=== PATIENT | male | born 1950 | race Two or more races ===

== ENCOUNTER → 2023-12-25 09:37 | Outpatient (REF) | payer OTHER, MEDICARE, SELFPAY ==
[2023-12-25 10:20] LABS: % Basophils 0.6 % (0-2); % Immature Granulocytes 0.2 % (0-0.5); % Lymphocytes 32.5 % (20.5-51.1); % Monocytes 8.7 % (1.7-9.3); Absolute Eosinophils 0.1 10^3/uL (0-0.7); Absolute Lymphocytes 1.8 10^3/uL (1.2-3.4); Absolute Monocytes 0.5 10^3/uL (0.1-0.6); Hematocrit 36.5 % (39.0-52.0); Hemoglobin 12.4 g/dL (13.0-18.0); Mean Corpuscular Hgb 31.5 pg (27.0-31.0); Mean Corpuscular Volume 92.6 fL (80.0-94.0); Mean Platelet Volume 9.4 fL (7.4-10.4); Nucleated Red Blood Cells % 0 % (-); Platelet Count 247 10^3/uL (130-400); Red Blood Cell Count 3.94 10^6/uL (4.70-6.10); Red Cell Dist. Width 12.7 % (11.5-14.5); White Blood Cell Count 5.4 10^3/uL (4.8-10.8)
[2023-12-25 10:27] LABS: INR 2.09; PT 23.3 Sec (11.4-14.6)
[2023-12-25 11:31] LABS: ALT (SGPT) 15 U/L (0-50); AST (SGOT) 26 U/L (17-59); Albumin 4.9 g/dl (3.5-5.0); Alkaline Phosphatase 66 U/L (38-126); Blood Urea Nitrogen 22 mg/dl (9-20); Calcium 9.9 mg/dl (8.4-10.2); Carbon Dioxide 26 mmol/L (22-30); Chloride 98 mmol/L (98-107); Glucose 98 mg/dl (70-99); Magnesium 2.1 mg/dl (1.6-2.3); Potassium 4.3 mmol/L (3.5-5.1); Sodium 136 mmol/L (135-145); Total Bilirubin 0.6 mg/dl (0.2-1.3); Total Protein 8.1 g/dl (6.3-8.2); eGFR 53.74
[2023-12-25 11:55] LABS: NT-proBNP 1260 pg/ml; Troponin I < 0.012 ng/ml
== END ==
LOC: SDSPAT 09:37
PROVIDERS: ATTENDING PHYSICIAN Internal Medicine Cardiovascular Disease; OTHER PHYSICIAN Internal Medicine Cardiovascular Disease; OTHER PHYSICIAN Physician Assistant Medical
DX: Z01.818 Encounter for other preprocedural examination (principal); I42.9 Cardiomyopathy, unspecified; I48.21 Permanent atrial fibrillation; I50.32 Chronic diastolic (congestive) heart failure; I20.9 Angina pectoris, unspecified
CPT/HCPCS: 36415; 80053; 83735; 83880; 84484; 85025; 85610; 93005

== ENCOUNTER 2024-01-04 06:08 | Day surgery (SDC) | payer OTHER, SELFPAY ==
[2023-12-25 09:55] VITALS: BMI 38.7
[2024-01-04] VITALS (8 sets, daily range): BP systolic 80–112; BP diastolic 61–72; BMI 38.8
[2024-01-04 07:13] LABS: Glucose - Point of Care 93 mg/dl (70-99)
[2024-01-04 07:46] LABS: INR 2.22; PT 24.5 Sec (11.4-14.6)
--- NOTE | 2024-01-04 08:54 | W.ICD.CONTRA ---
Post ICD/PROTOTYPER-D
-
History of [place]?: Yes
LV Function
Left ventricular function study result?: Ejection Fraction >/= 40%
ACEI/ARB/ARNI
Patient already on ACEI/ARB/ARNI: Yes
Beta-Nicholas
Patient already on Beta Nicholas: Yes
--- NOTE | 2024-01-04 09:47 | ITS.CL.ICD ---
Job Training Supervisor - ICD
Implantable Cardioverter Defibrillator
Procedure Report:
Primary Window Clerk: Ronny Hopkins MD
Procedure Date: 01/04/2024
Name of procedure:
1. Device Revision: Dual Chamber ICD
2. Pulse Generator Change
3. Defibrillator Pocket Revision
History:
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
recovered EF who presents as referral for device MIKEY/SUPERVISOR LEAF SPRING FABRICATION for elective generator change.
Methods:
After informed consent was obtained, the patient was brought to the EP laboratory in a postabsorptive, nonsedated state. Peripheral IV access was established. Prophylactic antibiotics were administered prior to incision. Continues ECG, blood
pressure, and pulse oximetry were initiated. Cardioversion patch electrodes were placed on the patient's chest and back. A grounding patch was applied to the skin. A 'time out' was called and confirmed. Sedation was administered by the Anesthesia
service.
The left chest was prepared and draped in a sterile fashion. Local anesthesia was injected in the subcutaneous tissue in the infraclavicular area. An incision was made into the chronic scar. With cautious attention to the leads, the subcutaneous
tissue was dissected the level of the device capsule. The capsule was opened, the device was explanted and disconnected from the leads. The leads were inspected and found to be free of visible defect. The leads were tested and found to have
adequate pacing and sensing parameters, consistent with pre-procedure measurements.
The pocket was revised to accommodate the new device. The pocket was flushed with antibiotic solution and hemostasis was assured. The generator was connected to the leads and placed inside the pocket. Antibiotic envelope was used. The wound was
closed with 3 running layers of absorbable suture and Steri-strips were applied to the skin. Dressing was applied in the typical fashion.
Following the procedure, the patient was taken to the recovery area in stable condition. No complications were noted.
Lead parameters and device programming:
- RA Lead ([employer], Model: 4076, Serial# [id number]): Sensing 1.0 mV, Pacing threshold AF, Imp 383 Ohm
- RV Lead ([employer], Model: 0293, Serial# [id number]): Sensing 16.9 mV, Pacing threshold 0.9 V at 0.4 ms, Imp 473 ohm; Shock Impedance: 60 ohm
- Device: [employer] DC ICD (Model: D233, Serial# [id number]), programmed VVI lower rate 60 PPM
- Zones: Return to preprocedural settings: VT 1 1 60-200, ATP, shocks, VT zone 200-2 50, ATP, shocks, VF zone greater than 250 quick convert with shocks
Explanted device: [employer] model: E162, Serial# [id number]
Conclusions:
1. Successful dual chamber defibrillator revision
2. Pulse generator change, DC ICD
3. Normal function of ICD and lead at implant testing.
Recommendations:
1. Discharge home when stable
2. Follow-up will be arranged in our office 7-10 days post-discharge for wound check; follow up with servicer travel trailers as scheduled.
Nimesh Roy, DO
Copy to: Ronny Hopkins MD; Gissell Matias, DO
== END 2024-01-04 11:00 | disposition home or self-care (01) ==
LOC: CATH 06:08
PROVIDERS: ATTENDING PHYSICIAN Internal Medicine Cardiovascular Disease; FAMILY PHYSICIAN Family Medicine; OTHER PHYSICIAN Internal Medicine Cardiovascular Disease
PROC: 0JPT0PZ Removal of Cardiac Rhythm Related Device from Trunk Subcutaneous Tissue and Fascia, Open Approach (ICD-10-PCS; 2024-01-04)
PROC: 0JH608Z Insertion of Defibrillator Generator into Chest Subcutaneous Tissue and Fascia, Open Approach (ICD-10-PCS; 2024-01-04)
PROC: 3E0132A Introduction of Anti-Infective Envelope into Subcutaneous Tissue, Percutaneous Approach (ICD-10-PCS; 2024-01-04)
DX: Z45.02 Encounter for adjustment and management of automatic implantable cardiac defibrillator (principal); I42.9 Cardiomyopathy, unspecified; E66.01 Morbid (severe) obesity due to excess calories; I48.21 Permanent atrial fibrillation; Z86.73 Personal history of transient ischemic attack (TIA), and cerebral infarction without residual deficits; G47.33 Obstructive sleep apnea (adult) (pediatric); E78.5 Hyperlipidemia, unspecified; I11.0 Hypertensive heart disease with heart failure; I50.32 Chronic diastolic (congestive) heart failure; I25.2 Old myocardial infarction; R73.03 Prediabetes; N40.0 Benign prostatic hyperplasia without lower urinary tract symptoms; K21.9 Gastro-esophageal reflux disease without esophagitis; Z79.01 Long term (current) use of anticoagulants
CPT/HCPCS: 33263; 82962; 85610; C1721

== ENCOUNTER → 2024-12-15 14:34 | Outpatient (REF) | payer OTHER, MEDICARE, SELFPAY ==
[2024-12-15 15:59] LABS: % Basophils 0.4 % (0-2); % Immature Granulocytes 0.4 % (0-0.5); % Lymphocytes 23.5 % (20.5-51.1); % Monocytes 6.7 % (1.7-9.3); Absolute Lymphocytes 1.6 10^3/uL (1.2-3.4); Absolute Monocytes 0.5 10^3/uL (0.1-0.6); Absolute Neutrophils 4.7 10^3/uL (1.4-6.5); Hematocrit 33.9 % (39.0-52.0); Hemoglobin 11.3 g/dL (13.0-18.0); Mean Corp Hgb Conc. 33.3 g/dL (33.0-37.0); Mean Corpuscular Hgb 30.6 pg (27.0-31.0); Mean Corpuscular Volume 91.9 fL (80.0-94.0); Mean Platelet Volume 9.9 fL (7.4-10.4); Nucleated Red Blood Cells % 0 % (-); Platelet Count 262 10^3/uL (130-400); Red Blood Cell Count 3.69 10^6/uL (4.70-6.10); Red Cell Dist. Width 13.6 % (11.5-14.5); White Blood Cell Count 6.9 10^3/uL (4.8-10.8)
[2024-12-15 16:20] LABS: ALT (SGPT) 30 U/L (0-50); AST (SGOT) 30 U/L (17-59); Albumin 4.5 g/dl (3.5-5.0); Alkaline Phosphatase 84 U/L (38-126); Blood Urea Nitrogen 23 mg/dl (9-20); Calcium 9.1 mg/dl (8.4-10.2); Carbon Dioxide 22 mmol/L (22-30); Chloride 107 mmol/L (98-107); Glucose 99 mg/dl (70-99); Potassium 4.2 mmol/L (3.5-5.1); Sodium 138 mmol/L (135-145); Total Bilirubin 0.7 mg/dl (0.2-1.3); Total Protein 7.4 g/dl (6.3-8.2); eGFR > 60.00
[2024-12-15 17:05] LABS: INR 2.75; PT 29.1 Sec (11.4-14.6)
== END ==
LOC: REG 14:34
PROVIDERS: ATTENDING PHYSICIAN Internal Medicine Cardiovascular Disease; FAMILY PHYSICIAN Family Medicine; REFERRING PHYSICIAN Internal Medicine Cardiovascular Disease
DX: I25.10 Atherosclerotic heart disease of native coronary artery without angina pectoris (principal); I42.9 Cardiomyopathy, unspecified; I50.22 Chronic systolic (congestive) heart failure; E78.5 Hyperlipidemia, unspecified
CPT/HCPCS: 36415; 80053; 85025; 85610

== ENCOUNTER 2025-01-06 10:56 | Day surgery (SDC) | payer OTHER, SELFPAY ==
[2025-01-06] VITALS (7 sets, daily range): BP systolic 103–132; BP diastolic 67–97; BMI 39.2
[2025-01-06 12:08] LABS: INR 1.74; PT 20.5 Sec (11.4-14.6)
--- NOTE | 2025-01-06 13:00 | W.ICD.CONTRA ---
Post ICD/PASSENGER SERVICE SUPERVISOR-D
-
History of [place]?: No
LV Function
Left ventricular function study result?: Ejection Fraction </= 35%
ACEI/ARB/ARNI
Patient already on ACEI/ARB/ARNI: Yes
Beta-Nicholas
Patient already on Beta Nicholas: Yes
--- NOTE | 2025-01-06 15:30 | W.PN.UPDATE ---
Update Note
Progress Note Update
Primary Zoning Administrator: Ronny Hopkins MD
Procedure Date: 01/06/2025
Name of procedure:
1. Subclavian venography
History:
1. Patient is a very pleasant 74-year-old male with a past medical history significant for LV noncompaction, hyperlipidemia, permanent atrial fibrillation, chronic heart failure with reduced ejection fraction, hypertension, history of TIA who
presented for possible device upgrade from dual-chamber ICD to PACKAGE MAKER-D. Patient has NYHA II-III heart failure symptoms, LVEF less than or equal to 35% despite goal-directed medical therapy greater than 90 days, LBB/IVCD with QRS duration greater than
150 ms with increasing pacing percentage (greater than 30%).
2. Please refer to H&P for complete history.
Methods:
After informed consent was obtained, the patient was brought to the EP laboratory in a postabsorptive, nonsedated state. Peripheral IV access was established. Prophylactic antibiotics were administered prior to incision. Continuous ECG, blood
pressure, and pulse oximetry were initiated. Cardioversion patch electrodes were placed on the patient's chest and back. A grounding patch was applied to the skin. Sedation was administered by anesthesia services.
In order to define the extrathoracic portion of the subclavian vein and exclude significant venous obstruction or anomalous anatomy, subclavian venography was performed prior to the procedure. Using the patient's left peripheral IV, contrast was
injected and images were recorded. There was evidence of stenosis proximally near the insertion point of the 2 wires into the subclavian with reconstitution/collateralization just distal to this occlusion followed by a more central (proximal)
occlusion at the innominate/SVC junction with no flow demonstrating into the SVC/RA. Due to concern of occlusion, procedure was concluded. I reviewed the films with my colleague Dr. Jenna Moncada who agrees with occlusions. Patient have follow-up
with Dr. Moncada in office to discuss possibility of lead extraction versus surgical epicardial lead placement.
Recommendations:
- OK to resume home medications as indicated
- Follow-up with Dr Moncada as scheduled
Nimesh Roy DO, [facility], [facility]
Clinical Cardiac Beauty Counselor
cc: Gissell Matias DO; Ronny Hopkins MD; Jenna Moncada MD
== END 2025-01-06 17:30 | disposition home or self-care (01) | DRG 309 ==
LOC: CATH 10:56
PROVIDERS: ATTENDING PHYSICIAN Internal Medicine Cardiovascular Disease; FAMILY PHYSICIAN Family Medicine
DX: I82.701 Chronic embolism and thrombosis of unspecified veins of right upper extremity (principal); Z53.09 Procedure and treatment not carried out because of other contraindication; I50.22 Chronic systolic (congestive) heart failure; I48.21 Permanent atrial fibrillation; I82.890 Acute embolism and thrombosis of other specified veins; I82.290 Acute embolism and thrombosis of other thoracic veins; I11.0 Hypertensive heart disease with heart failure; E78.5 Hyperlipidemia, unspecified; Z86.73 Personal history of transient ischemic attack (TIA), and cerebral infarction without residual deficits
CPT/HCPCS: 36005; 75820; 85610; Q9967

== ENCOUNTER → 2025-01-14 14:44 | Outpatient (REF) | payer OTHER, MEDICARE, SELFPAY | LOC: RAD 14:44 | PROVIDERS: ATTENDING PHYSICIAN Thoracic Surgery (Cardiothoracic Vascular Surgery); FAMILY PHYSICIAN Family Medicine | DX: Z01.810 Encounter for preprocedural cardiovascular examination (principal) | CPT/HCPCS: 71260; Q9967 ==

== ENCOUNTER 2025-02-03 07:34 | Inpatient (IN) | payer OTHER, SELFPAY ==
[2025-01-16 09:28] VITALS: BMI 39.6
[2025-01-16 10:34] LABS: % Basophils 0.6 % (0-2); % Immature Granulocytes 0.2 % (0-0.5); % Monocytes 10.1 % (1.7-9.3); % Neutrophils 55.1 % (42.2-75.2); Absolute Lymphocytes 1.8 10^3/uL (1.2-3.4); Absolute Monocytes 0.5 10^3/uL (0.1-0.6); Absolute Neutrophils 2.9 10^3/uL (1.4-6.5); Hematocrit 36.4 % (39.0-52.0); Hemoglobin 11.9 g/dL (13.0-18.0); Mean Corp Hgb Conc. 32.7 g/dL (33.0-37.0); Mean Corpuscular Hgb 30.6 pg (27.0-31.0); Mean Corpuscular Volume 93.6 fL (80.0-94.0); Mean Platelet Volume 9.8 fL (7.4-10.4); Nucleated Red Blood Cells % 0 % (-); Platelet Count 230 10^3/uL (130-400); Red Blood Cell Count 3.89 10^6/uL (4.70-6.10); Red Cell Dist. Width 13.2 % (11.5-14.5); White Blood Cell Count 5.2 10^3/uL (4.8-10.8)
[2025-01-16 10:35] LABS: Urine Albumin 2+ (Neg - Trace); Urine Bilirubin Negative (Negative); Urine Character Clear (Clear); Urine Color Yellow; Urine Glucose 4+ (Negative); Urine Ketone Negative (Negative); Urine Leukocyte Negative (Negative); Urine Nitrite Negative (Negative); Urine Occult Blood 3+ (Negative); Urine Urobilinogen Negative (Neg - 1+)
[2025-01-16 10:46] LABS: INR 2.22; PT 24.7 Sec (11.4-14.6)
[2025-01-16 10:47] LABS: APTT 32.2 Sec (23.4-35.0)
--- NOTE | 2025-01-16 10:49 | CM ---
CM following for DC planning needs.
Met w/ patient and spouse during PATs for planned procedure, 01/20.
Pt. resides w/ spouse in a private, [facility]. He is functionally indep. w/ ADLs, mobility without the use of any assisted device.
Pt. uses a CPAP @ home.
Pt. has RX plan and uses [facility] [address].
Reviewed pre and post op routines.
Soap provided.
Reviewed post op MD appointments.
Plan is for home once medically stable.
No antic. needs identified.
[2025-01-16 11:34] LABS: ALT (SGPT) 18 U/L (0-50); AST (SGOT) 25 U/L (17-59); Albumin 4.7 g/dl (3.5-5.0); Alkaline Phosphatase 62 U/L (38-126); Blood Urea Nitrogen 22 mg/dl (9-20); Calcium 9.2 mg/dl (8.4-10.2); Carbon Dioxide 26 mmol/L (22-30); Chloride 103 mmol/L (98-107); Direct Bilirubin 0.3 mg/dl (0.0-0.4); Estimated Creatinine Clearance 68 ml/min; Glucose 113 mg/dl (70-99); Potassium 4.6 mmol/L (3.5-5.1); Sodium 140 mmol/L (135-145); Total Bilirubin 0.8 mg/dl (0.2-1.3); Total Protein 7.7 g/dl (6.3-8.2); eGFR > 60.00
[2025-01-16 11:54] LABS: Urine Hyaline Cast 0-2 /LPF (0-2)
[2025-01-16 11:56] LABS: Glycohemoglobin (HgbA1c) 5.8 % (4.0-5.6)
[2025-01-16 11:58] LABS: Urine Red Blood Cell 0-2 /HPF (0-2); Urine White Cell 0-2 /HPF (0-5)
[2025-02-03] VITALS (8 sets, daily range): BP systolic 96–143; BP diastolic 63–100; BMI 38.8
--- NOTE | 2025-02-03 08:00 | PTCARENOTE ---
Pt received into 2264 at 0715; pt AAOx3; pt confirmed 2 showers at home and NPO since 02/02/2025 at 2200; Medication list confirmed with pt; ABO collected and sent to lab; pt clipped and prepped for [facility]; all questions answered.
[2025-02-03] MEDS: BACTROBAN 2% OINTMENT 1 APPLIC NASAL (08:09)
--- NOTE | 2025-02-03 09:01 | CM ---
Reviewed chart. Mr. Orellana is in the operating room today. Prior to admission he resides with his spouse in a two story home. Prior to admission he was independent with ambulation and adls. He has a CPAP Machine at home. He has a prescription
plan and uses [facility]. Medical work-up in progress. The discharge plan is to return home with his spouse when medically stable.
--- NOTE | 2025-02-03 13:33 | W.CVOR.SURPR ---
CVOR Surgeon Immed Pre Op
-
I have examined this patient prior to performance of the scheduled procedure.
The patient's condition is unchanged from the time of the dictated/written History and
Physical and the patient is able to undergo the scheduled procedure.
LV epicardial Lead and upgrade to AS400 ANALYST/ICD and BIJAN E
--- NOTE | 2025-02-03 14:20 | PTCARENOTE ---
Received patient from morning RN. Patient was supposed to have procedure done today (planned LV epicardial Lead and upgrade to AIRPORT OPERATIONS OFFICER/ICD and BIJAN E), however due to OR schedule conflict/acuity of unit patient's procedure delayed until tomorrow. Patient
aware of plan. Assessment completed and documented under shift assessment on worklist.
Patient is pleasant, cooperative and AAOX4. OOB without assist. A-Fib with occasional PVC's, occasional V-paced. R Wrist #22 patent. No edema + pulses. RA, lungs clear. Obese abdomen, + BS. Voids in bathroom. Skin intact outside of bruises to knees
which patient reports is from praying at home. Patient to be NPO at midnight.
Does normally take Warfarin for A-Fib. However, okay for no anticoagulation at this time per Cardiac CORPORATION SECRETARY.
[2025-02-03] MEDS: TOPROL XL 50 MG PO (14:21)
--- NOTE | 2025-02-03 20:00 | PTCARENOTE ---
received pt from previous rn. AAOX4. OOB without assist. A-Fib with occasional PVC's, occasional V-paced. R Wrist #22 patent. No edema + pulses. RA, lungs clear. Obese abdomen, + BS. Voids in bathroom. Skin intact outside of bruises to knees which
patient reports is from praying at home. call hassan within reach.
--- NOTE | 2025-02-04 00:24 | PTCARENOTE ---
VSS, a-fib per tele monitor w/ occasional V pacing. assessment remains unchanged.
[2025-02-04 05:44] VITALS: BP 110/64
[2025-02-04 05:52] VITALS: BMI 38.7
--- NOTE | 2025-02-04 07:10 | PTCARENOTE ---
pt NPO since midnight, CHG bath given, VSS, sent to CVOR.
[2025-02-04 07:30] LABS: Urine Albumin 2+ (Neg - Trace); Urine Bilirubin Negative (Negative); Urine Character Clear (Clear); Urine Glucose Negative (Negative); Urine Ketone Negative (Negative); Urine Leukocyte Negative (Negative); Urine Nitrite Negative (Negative); Urine Occult Blood 4+ (Negative); Urine Urobilinogen 1+ (Neg - 1+)
[2025-02-04 07:31] LABS: Urine Color Amber
[2025-02-04 07:42] LABS: Urine Squamous Cell 0-2 /LPF (Few); Urine White Cell 0-2 /HPF (0-5)
--- NOTE | 2025-02-04 09:27 | W.PN.CT.SURG ---
CT Surgery Operative Note
-
CARDIAC SURGERY OPERATIVE REPORT
Preoperative Diagnosis: Nonischemic cardiomyopathy with reduced EF despite goal-directed medical therapy
Postoperative Diagnosis: Same
Procedure(s) Performed:
1. Left Anterolateral Minithoracotomy
2. Implant of 2 left ventricular epicardial leads
3. Upgrade device to WATER CONSERVATIONIST ICD
4. Cryo nerve ablation of intercostal spaces 3, 4, and 5
5. Threshold testing of new devices
Date of Surgery: 02/04/25
Comorbidities:
1. Nonischemic cardiomyopathy with LVEF of 25%
2. History of H fibrillation with PPM placement
3. Hyperlipidemia
4. Hypertension
5. Obstructive sleep apnea
6. History of TIA
7. GERD
8. Morbidly obese with a BMI of 38
Attending Surgeon: Kevin Laurent MD, MS
Assistants: Kevin Hassan PA-C (present and necessary to engineer first assistant, retraction, suction, exposure, suture management, and wound closure under my direction)
Anesthesiology: Marino Aguilera MD and AMBROCIO Malloy
Scrub and Circulating RNs: Darlene Lowry, BLAIRE, Linda Chappell RN
Anesthesia: GETA, Dual Lumen
EBL: 20cc
Products: None
Implants:
1. [employer] medical LV epicardial lead screw on, serial #[id number] (backup)
2. [employer] medical LV epicardial lead screw line, serial #[id number] (in use)
3. Medtronic WATER CONSERVATIONIST ICD cobalt XT HF MRI SureScan, serial number [id number]
Indication(s) for Procedures: This is a 74-year-old male with a history of nonischemic cardiomyopathy status post DC ICD for primary prevention with history of TIA and A-fib. He was referred to me given that he has newly found venous stenosis as
well as a drop in his left ventricular ejection fraction to 25% despite goal-directed medical therapy. His EKG demonstrated left bundle branch block. The patient also requested to have a new device placed with epicardial leads as opposed to laser
lead extraction attempt.
Findings: A small anterolateral minithoracotomy was created at the fourth intercostal space the pericardium was opened and the stay sutures were placed. Of note his chest wall was extremely thick and with his cardiomegaly, his LV was essentially
pushed up against the chest wall. 2 left ventricular leads were placed both had excellent impedance and capture these were tunneled up towards the existing pacemaker which was explanted and upgraded to a WATER CONSERVATIONIST ICD. He was stable throughout the
process. The primary epicardial lead had a voltage of 0.[address] wave of 5.3. The backup left ventricular epicardial pacer lead had a voltage of 1.0, impedance of 646, and P R wave of 6.3. His existing right atrial right
ventricular leads remained the same. Of note he was underlying atrial fibrillation and so we could not test the pacing threshold of his right atrial lead. His settings was set to 80 bpm in order to override his [place] A-fib rhythm. His final
pacing mode was VVIR rate of 80 with upper tracking rate of 130 bpm and upper activity rate of 120.
Description of Procedure: Description of Procedure: The patient was taken to the operating room. Their identity and procedure to be performed were verified and they were positioned supine with left side bumped on the operating table. Induction via
general anesthesia with endotracheal intubation was performed and arterial monitoring were inserted. The patient was then prepped and draped from chin to thighs in a sterile fashion. A preoperative time-out was performed with all members of the team
present. For intercostal space was identified and a 7-9 cm incision was made. Of note he had extremely thick chest wall of approximately 7 cm thick that required extensive subcutaneous dissection in order to reach the outside of the chest wall.
The left lung was deflated and the chest was entered verifying no trauma to the pulmonary parenchyma. Next, a minimally invasive thoracotomy retractor was placed to facilitate visualization. The phrenic nerve was identified and the pericardium was
opened anteriorly. Pericardial stays were used to create our pericardial well. Using a sponge stick, the apex of the heart was retracted inferiorly and medially. This expose the lateral wall of the left ventricle. 2 left ventricular epicardial
leads were placed and both were tested by the [employer] technical sales representatives. I did attempt to put a camera in order to visualize left atrial appendage however given his cardiomegaly, body habitus this was not able to be safely done. Both had excellent
sensing, impedance, and threshold. Cryo nerve ablation was then performed of intercostal spaces 3, 4, and 5 for postoperative pain management the better of the 2 was selected to be the primary pacemaker lead. The leads were then tunneled up to the
fourth intercostal space and then subcutaneously towards the previous pacemaker site. The old [employer] dual-chamber pacemaker ICD was extracted and disconnected. The new pacemaker leads were connected and the device was interrogated and
found to be working as expected. Secondary left ventricular lead was capped. The pacemaker pocket was slightly enlarged to facilitate acceptance of the new biventricular box and then closed in 3 layers. A #19 Maced[place] Bertrand drain was inserted into
the pericardium and looped so that was in the thoracic cavity as well. Additional local analgesia was injected into the interspaces as well as the subcutaneous and subdermal tissues. Fascia, dermal and subcuticular layers were closed in standard
fashion.
All instrument, sponge, and needle counts were confirmed to be correct x 2 at the end of the operation. The patient was transferred to the cardiac intensive care unit, intubated in critical but stable condition.
I, Dr. Kevin Laurent, was present, scrubbed for, and performed all critical elements of this procedure.
Kevin Laurent MD, MS
Cardiothoracic Surgeon
[facility]
This operative dictation was created using the [employer] dictation system. Please excuse any grammatical, typographical, or 'sound alike' errors
--- NOTE | 2025-02-04 09:49 | W.PN.UPDATE ---
Update Note
Progress Note Update
Blood:� none
Pressors:� off
Sedatives:� Precedex at 0.5
�
NEURO: sedated on Precedex, pupils +2 mm B/L
RESP: #8OT @24 cm> 500/60%/14/5. Lungs clear B/L. 2 mediastinal (XXcc on arrival) and L pleural (5 cc on arrival) chest tubes to -20cm suction. Sanguineous drainage
CV: RRR +S1, S2, no S3, no�rub, no murmur. Dermabond to left thoracotomy. RIJ w/ cordis
ABD: round, soft, no BS
EXT: no edema, +2/4 DP pulses B/L, R radial A-line intact
: Goodman with clear yellow urine
�
A/P: POD #0 s/p L anterolateral minithoracotomy with implant of LV epicardial leads (x 2) for device upgrade
- wean and extubate
- PMHx of MARIOLA, may need BiPAP s/p extubation
�
# acute surgical blood loss anemia-expected
- trend CBC
�
# nonischemic cardiomyopathy
- EF 25%
- resume home regiment as tolerated
- entresto, furosemide, toprol xl, farxiga
- Cardiology consulted, rec's appreciated
# Atrial Fibrillation
- resume BB
- on Warfarin as outpatient, resume tonight
# Hypertension
- resume home regiment as tolerated
�
# Hyperlipidemia
- resume�simvastatin
[2025-02-04 09:54] LABS: HCO3 22.7 mmol/L (21-28); Ionized Calcium 1.17 mMOL/L (1.15-1.33); O2 Saturation % 96.4 % (94-98); PCO2 42 mmHg (35-48); PO2 96 mmHg (83-108); Potassium 4.4 mMOL/L (3.5-5.1); Sodium 135 mMOL/L (136-145); pH 7.34 (7.35-7.45)
--- NOTE | 2025-02-04 09:54 | PTCARENOTE ---
Received pt from [facility]; pt intubated and sedated; V paced on monitor and VSS; RIJ Cordis, SLIC, Right A-line and PIV; all lines leveled and zeroed; Precedex infusing see flow sheet for details; ETT 8 23 @ lip; SIMV 500/40%//8; CT x1 to -20 wall
suction no air leak no crepitus noted; hypoactive bowel sounds; Goodman catheter draining yellow urine; palpable pulses throughout; no edema noted; all surgical sites C/D/I; see nursing documentation for further details.
[2025-02-04 09:58] LABS: Hematocrit 33.5 % (39.0-52.0); Platelet Count 184 10^3/uL (130-400)
[2025-02-04] MEDS: ANCEF 10 IV ×2 (10:00)
[2025-02-04] MEDS: NSS 500 IV (10:00)
[2025-02-04 10:10] LABS: Blood Urea Nitrogen 23 mg/dl (9-20); Estimated Creatinine Clearance 82 ml/min; Glucose 152 mg/dl (70-99)
[2025-02-04 10:11] LABS: APTT 24.8 Sec (23.4-35.0); INR 1.28; PT 16.5 Sec (11.4-14.6)
[2025-02-04] MEDS: SENOKOT-S PO (10:23)
[2025-02-04] MEDS: TYLENOL PO ×2 (10:23→15:07)
[2025-02-04] MEDS: VITAMIN D3 (cholecalciferol) PO (10:23)
[2025-02-04] MEDS: PACERONE PO (10:23)
[2025-02-04] MEDS: NEURONTIN PO (10:23)
[2025-02-04] MEDS: MAGNESIUM OXIDE PO (10:23)
[2025-02-04] MEDS: PROTONIX PO (10:23)
[2025-02-04] MEDS: TORADOL 15 MG IV ×3 (10:26→22:09)
--- NOTE | 2025-02-04 11:32 | PTCARENOTE ---
Respiratory at bedside and pt placed on CPAP.
[2025-02-04 12:15] LABS: B.E. - POC -2.4 mmol/L; Blood Urea Nitrogen - POC 24 mg/dl (3-120); Chloride - POC 106 mmol/L (96-111); Creatinine - POC 1.05 mg/dl (0.3-1.0); Glucose - POC 132 mg/dl (70-99); HCO3 - POC 23 mmol/L (21-28); Hematocrit - POC 36 % PCV (42-52); Hemodilution- POC No; Hemoglobin Calculated - POC 12.1; Ionized Calcium - POC 1.19 mmol/L (1.15-1.33); Lactate - POC 1.05 mmol/L (0.36-0.75); O2 Saturation %Calculated-POC 97.8 % (94-98); PCO2 - POC 39 mmHg (35-48); PO2 - POC 104 mmHg (83-108); Potassium - POC 4.1 mmol/L (3.5-5.1); Sodium - POC 139 mmol/L (136-145); Specimen Type - POC Arterial; pH - POC 7.37 (7.35-7.45)
--- NOTE | 2025-02-04 12:16 | PTCARENOTE ---
EPOC resulted and reviewed with CT [employer]; respiratory at bedside and pt extubated; 6L NC 96%.
--- NOTE | 2025-02-04 12:34 | PTCARENOTE ---
Arm sling applied to left arm.
[2025-02-04] MEDS: LASIX 40 MG IV (13:54)
[2025-02-04 14:19] LABS: Hematocrit 34.3 % (39.0-52.0); Hemoglobin 11.3 g/dL (13.0-18.0); Platelet Count 179 10^3/uL (130-400)
--- NOTE | 2025-02-04 14:44 | CM ---
Reviewed chart. Mr. Orellana was in the operating room today. Prior to admission he resides with his spouse in a two story home. Prior to admission he was independent with ambulation and adls. He has a CPAP Machine at home. He has a prescription
plan and uses [facility]. Medical work-up in progress. The discharge plan is to return home with his spouse when medically stable.
[2025-02-04] MEDS: LIDOCAINE 4% PATCH TOPICAL (15:13)
[2025-02-04] MEDS: BACTROBAN 2% OINTMENT NASAL (15:13)
[2025-02-04] MEDS: LOW STRENGTH ASPIRIN PO (15:13)
[2025-02-04] MEDS: LOW STRENGTH ASPIRIN 81 MG PO (15:17)
[2025-02-04] MEDS: TOPROL XL 50 MG PO (15:17)
[2025-02-04] MEDS: ANCEF 5 IV ×2 (15:17→23:58)
[2025-02-04] MEDS: NEURONTIN 100 MG PO ×2 (15:17→22:08)
[2025-02-04] MEDS: PACERONE 200 MG PO ×2 (15:17→22:09)
--- NOTE | 2025-02-04 15:53 | W.PN.CARDCBS ---
Addendum entered and electronically signed by Nimesh Roy DO 02/04/25 16:25:
I saw and examined the patient.
The Administration Intern's note was reviewed and I agree with the note.
Comment:
Patient doing well following LV epicardial lead placement x 2 with upgrade to REFINERY OPERATOR-D with CT surgery, Dr. Laurent.
Patient resting comfortably in bed without complaint
V-paced via telemetry with permanent AF underlying
GEN: No distress, awake, alert, oriented x3. LUE sling in place
HEENT: supple, anicteric, mmm, eomi
LUNGS: CTA B/L, no wheezes
CV: Reg, S1/S2, no murmur
ABD: soft, BS+, NT/ND
EXT: No cyanosis, clubbing, edema
NEURO: Gross non-focal
SKIN: Warm, pink, dry. No rash. CT in place
A/P as below
[facility] in the morning
Follow CT surgery for postoperative care
Resume oral anticoagulation when okay with CT surgery
Encourage out of bed, I-S
Original Note:
Today's Communication / Plan
-
continue post op care
vpaced rhythm
resume coumadin when ok per surgery
Impression / Plan
-
Primary [employer] Bi Developer: Dr. Ronny Hopkins
Primary EP: Dr. Roy
Assessment:
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
NICM EF 25%
Chronic HFrEF
Permanent atrial fibrillation
Chronic OAC with warfarin
HTN
HLD
History of TIA
Echo 10/30/2024: EF severe LV systolic dysfunction, mild RV systolic dysfunction, mild to moderate MR, technically difficult study
Plan:
- Upon attempt to upgrade ICD, patient noted to have subclavian vein stenosis and underwent CT surgical eval. s/p LV epicardial lead placement x 2 and upgrade to REFINERY OPERATOR ICD 02/04/25
- wean supp O2. minimal output from CT noted.
- vpaced on tele and by review of post op EKG. continue amiodarone
- resume OP coumadin when ok per CT surgery
- continue OP GDMT of NICM with toprol, entresto
- follow volume status post op. on po lasix 60mg daily as OP
- continue post op care
- d/w nursing
Progress Note - Cognos Bi Developer
Subjective
Date of Service: February 04, 2025
reports pain adequately controlled
Objective
Labs:
02/04/25 14:07
02/04/25 09:43
Labs
Hgb 11.3 g/dL (13.0-18.0) L 02/04/25 14:07
Hct 34.3 % (39.0-52.0) L 02/04/25 14:07
Plt Count 179 10^3/uL (130-400) 02/04/25 14:07
PT 16.5 Sec (11.4-14.6) H 02/04/25 09:43
INR 1.28 02/04/25 09:43
APTT 24.8 Sec (23.4-35.0) 02/04/25 09:43
Sodium 140 mmol/L (135-145) 01/16/25 09:43
Potassium 4.6 mmol/L (3.5-5.1) 01/16/25 09:43
BUN 23 mg/dl (9-20) H 02/04/25 09:43
Creatinine 1.0 mg/dL (0.7-1.3) 02/04/25 09:43
Glucose 152 mg/dl (70-99) H 02/04/25 09:43
Vital Signs and I&O:
Vital Signs
Temp Pulse Resp BP Pulse Ox
98.2 F 80 22 110/64 99
02/04/25 13:00 02/04/25 13:50 02/04/25 13:50 02/04/25 05:44 02/04/25 13:50
Vital Signs
Temp Pulse Resp BP Pulse Ox
98.2 F 80 22 110/64 99
02/04/25 13:00 02/04/25 13:50 02/04/25 13:50 02/04/25 05:44 02/04/25 13:50
Intake & Output
02/02/25 02/03/25 02/04/25 02/05/25
07:59 07:59 07:59 07:59
Intake Total 105 / 105
Output Total 170 / 170
Balance -65 / -65
Physical Exam
Physical Exam
GEN: No distress, awake, alert, oriented x3. LUE sling in place
HEENT: supple, anicteric, mmm, eomi
LUNGS: CTA B/L, no wheezes
CV: Reg, S1/S2, no murmur
ABD: soft, BS+, NT/ND
EXT: No cyanosis, clubbing, edema
NEURO: Gross non-focal
SKIN: Warm, pink, dry. No rash. CT in place
[2025-02-04 16:49] VITALS: BP 121/84
--- NOTE | 2025-02-04 17:14 | PTCARENOTE ---
SLIC, A-LINE removed per order; Goodman removed; assessment unchanged; V paced on monitor and VSS; family at bedside and pt OOB to chair with RN.
[2025-02-04 19:11] VITALS: BP 98/72
[2025-02-04 20:00] VITALS: BP 102/81
[2025-02-04] MEDS: BACTROBAN 2% OINTMENT 1 APPLIC NASAL (20:15)
[2025-02-04] MEDS: SENOKOT-S 1 TABLET PO (20:15)
[2025-02-04] MEDS: MAGNESIUM OXIDE 500 MG PO (20:15)
--- NOTE | 2025-02-04 20:20 | PTCARENOTE ---
received pt from previous rn. pt resting in chair at time of assessment, VSS, pt AAOx4, 100% v-paced per tele monitor HR 80s, + pulses, pox 98% on 6L, lungs diminished, CT x1 to -20 wall suction no air leak no crepitus noted; hypoactive bowel
sounds; DTV, all surgical sites intact, surgical sling intact. pivx2 intact. RIJ cordis infusing KVO. plan of care discussed questions encouraged. call hassan within reach
[2025-02-04 21:00] VITALS: BP 112/83
[2025-02-04 22:00] VITALS: BP 110/76
[2025-02-04] MEDS: LIPITOR 10 MG PO (22:08)
[2025-02-04] MEDS: TYLENOL 1000 MG PO (22:08)
[2025-02-05] VITALS (28 sets, daily range): BP systolic 77–109; BP diastolic 44–81; PULSE 80–81; BMI 39.3
--- NOTE | 2025-02-05 00:35 | PTCARENOTE ---
VSS, V paced per tele monitor, pt unable to void @ 2300, bladder scanned for 25ccs otherwise assessment remains unchanged
[2025-02-05 03:48] LABS: Hematocrit 31.8 % (39.0-52.0); Hemoglobin 10.3 g/dL (13.0-18.0); Mean Corp Hgb Conc. 32.4 g/dL (33.0-37.0); Mean Corpuscular Hgb 30.4 pg (27.0-31.0); Mean Corpuscular Volume 93.8 fL (80.0-94.0); Mean Platelet Volume 9.8 fL (7.4-10.4); Platelet Count 164 10^3/uL (130-400); Red Blood Cell Count 3.39 10^6/uL (4.70-6.10); Red Cell Dist. Width 13.2 % (11.5-14.5); White Blood Cell Count 9.6 10^3/uL (4.8-10.8)
[2025-02-05 03:57] LABS: INR 1.16; PT 15.3 Sec (11.4-14.6)
[2025-02-05 04:11] LABS: Blood Urea Nitrogen 35 mg/dl (9-20); Calcium 8.9 mg/dl (8.4-10.2); Carbon Dioxide 26 mmol/L (22-30); Chloride 105 mmol/L (98-107); Estimated Creatinine Clearance 59 ml/min; Glucose 134 mg/dl (70-99); Magnesium 2.2 mg/dl (1.6-2.3); Potassium 4.5 mmol/L (3.5-5.1); Sodium 137 mmol/L (135-145)
--- NOTE | 2025-02-05 04:16 | PTCARENOTE ---
routine labs obtained. v paced per tele monitor assessment remains unchanged
--- NOTE | 2025-02-05 06:00 | W.PN.CT ---
Today's Communication / Plan
-
-pod #1
-no issues overnight
-L pleur CT output 100/215 in 12/24 hrs, no air leak
-a-fib with v-pacing 80 overnight
-voided only 200 since Rex came out around 5 pm.
-Cr is 1.4 today (1.0 on 02/04 and 1.2 preop)- follow
-encourage Is, OOB
Assessment / Plan
-
- Nonischemic cardiomyopathy with reduced EF despite goal-directed medical therapy- s/p Left Anterolateral Minithoracotomy; Upgrade device to PROFESSIONAL BASS FISHERMAN ICD; Implant of 2 left ventricular epicardial leads by Dr. Laurent on 02/04/25, pod #1
- Nonischemic cardiomyopathy with LVEF of 25%
- History of a-fibrillation with PPM placement
- Hyperlipidemia
- Hypertension
- Obstructive sleep apnea
- History of TIA
- LBBB
- GERD
- Class 2 obesity with a BMI of 38
Discussed patient care with: Nursing and Care Team
Subjective
-
Date of Service: February 05, 2025
Objective Data
-
Lab Results
02/05/25 03:38
02/05/25 03:38
PT 15.3 Sec (11.4-14.6) H 02/05/25 03:38
INR 1.16 02/05/25 03:38
APTT 24.8 Sec (23.4-35.0) 02/04/25 09:43
Vital Signs
Vital Signs
Temp Pulse Resp BP Pulse Ox
98.3 F 80 14 109/79 100
02/05/25 04:15 02/05/25 05:10 02/05/25 04:15 02/05/25 05:00 02/05/25 05:10
CT Intake/Output/Weight
02/04/25 02/04/25 02/05/25
06:59 18:59 06:59
Intake Total 125 / 235 110 / 235
Output Total 535 / 635 100 / 635
Balance -410 / -400 10 / -400
SaO2: 100
Physical Exam
-
General: Awake and AOx3
Cardiovascular: Regular rate & rhythm (suspect a-fib with v-pacing)
Respiratory: Decreased Breath Sounds
Sternum: Stable
Incision: Clean, Dry and Intact
Extremities: No Edema
Abdomen: soft, nontender, + bowel sounds
Data Reviewed
-
Lab Results: Results Reviewed
Medications: Active Meds Reviewed
Chest X-Ray: Report Reviewed and Image Reviewed
ECG: Report Reviewed and Image Reviewed
[2025-02-05] MEDS: TYLENOL 1000 MG PO ×3 (06:29→22:48)
[2025-02-05] MEDS: FLEXERIL 5 MG PO (07:20)
--- NOTE | 2025-02-05 07:55 | PTCARENOTE ---
Received pt from mini shifter RN; pt AAOx3 and resting comfortably in chair; V paced on monitor and VSS: RIJ Cordis patent and PIV x2 patent; Lungs diminished; IS to 1250; CT x1 to -20 wall suction no air leak and no crepitus noted; positive bowel
sounds; pt voiding yellow urine; palpable pulses throughout; no edema noted; all surgical sites C/D/I; see nursing documentation for further details.
[2025-02-05] MEDS: VITAMIN D3 (cholecalciferol) 50 MCG PO (09:01)
[2025-02-05] MEDS: SENOKOT-S 1 TABLET PO ×2 (09:01→20:09)
[2025-02-05] MEDS: NEURONTIN 100 MG PO ×3 (09:01→20:09)
[2025-02-05] MEDS: PROTONIX 40 MG PO (09:01)
[2025-02-05] MEDS: MAGNESIUM OXIDE 500 MG PO ×2 (09:02→20:09)
[2025-02-05] MEDS: BACTROBAN 2% OINTMENT 1 APPLIC NASAL ×2 (09:02→20:09)
[2025-02-05] MEDS: TOPROL XL 50 MG PO (09:02)
[2025-02-05] MEDS: LOW STRENGTH ASPIRIN 81 MG PO (09:02)
[2025-02-05] MEDS: ANCEF 5 IV (09:02)
[2025-02-05] MEDS: PACERONE 200 MG PO ×3 (09:02→22:48)
[2025-02-05] MEDS: LIDOCAINE 4% PATCH TOPICAL (09:03)
[2025-02-05] MEDS: ENTRESTO 24 MG/26 MG 1 TAB PO ×2 (09:04→20:12)
--- NOTE | 2025-02-05 10:04 | PTCARENOTE ---
CT x1 pulled by CT WATERPROOF COATING MACHINE TENDER at bedside.
[2025-02-05] MEDS: NSS IV (10:56)
[2025-02-05] MEDS: LASIX 60 MG PO (10:56)
--- NOTE | 2025-02-05 11:28 | PTCARENOTE ---
RIJ Cordis removed per CT ADMISSIONS NURSE order; report given to Giovanna [facility] RN and pt transported via wheelchair with family and belongings.
--- NOTE | 2025-02-05 12:40 | W.PN.CARDCBS ---
Addendum entered and electronically signed by Yasir Lindsay DO 02/05/25 17:36:
I saw and examined the patient.
The Net Front End Developer's note was reviewed and I agree with the note.
Comment:
Plan:
Stable post op cardiac status
FAMILY INTERVENTION SPECIALIST ICD with appropriate function
Coumadin starting today
Will arrange outpt cardiac followup
Discussed with family at bedside.
Please recall if needed.
Original Note:
Today's Communication / Plan
-
continue post op care
coumadin starting tonight
device with appropriate function
Impression / Plan
-
Primary Health Companion: Dr. Ronny Hopkins
Primary EP: Dr. Roy
Assessment:
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
NICM EF 25%
Chronic HFrEF
Permanent atrial fibrillation
Chronic OAC with warfarin
HTN
HLD
History of TIA
Obesity
Echo 10/30/2024: EF severe LV systolic dysfunction, mild RV systolic dysfunction, mild to moderate MR, technically difficult study
Plan:
- Upon attempt to upgrade ICD 12/2024, patient noted to have subclavian vein stenosis and therefore underwent CT surgical eval. s/p LV epicardial lead placement x 2 and upgrade to FAMILY INTERVENTION SPECIALIST ICD 02/04/25
- vpaced on review of tele. continue amiodarone. carelink device interrogation completed this AM with appropriate device function, no abnormalities noted
- OP coumadin to resume tonight
- continue OP GDMT of NICM with toprol entresto
- follow volume status post op. on po lasix 60mg daily, resumed 02/05. Cr up to 1.4, follow
- continue post op care
- d/w patient and family at bedside
Progress Note - Health Companion
Subjective
Date of Service: February 05, 2025
Reports pain is improving. No shortness of breath
Objective
Labs:
02/05/25 03:38
02/05/25 03:38
Labs
Hgb 10.3 g/dL (13.0-18.0) L 02/05/25 03:38
Hct 31.8 % (39.0-52.0) L 02/05/25 03:38
Plt Count 164 10^3/uL (130-400) 02/05/25 03:38
PT 15.3 Sec (11.4-14.6) H 02/05/25 03:38
INR 1.16 02/05/25 03:38
APTT 24.8 Sec (23.4-35.0) 02/04/25 09:43
Sodium 137 mmol/L (135-145) 02/05/25 03:38
Potassium 4.5 mmol/L (3.5-5.1) 02/05/25 03:38
BUN 35 mg/dl (9-20) H 02/05/25 03:38
Creatinine 1.4 mg/dL (0.7-1.3) H 02/05/25 03:38
Glucose 134 mg/dl (70-99) H 02/05/25 03:38
Vital Signs and I&O:
Vital Signs
Temp Pulse Resp BP Pulse Ox
98.6 F 80 20 101/72 97
02/05/25 11:14 02/05/25 11:10 02/05/25 11:14 02/05/25 11:02 02/05/25 11:14
Vital Signs
Temp Pulse Resp BP Pulse Ox
98.6 F 80 20 101/72 97
02/05/25 11:14 02/05/25 11:10 02/05/25 11:14 02/05/25 11:02 02/05/25 11:14
Intake & Output
02/03/25 02/04/25 02/05/2523/25
07:59 07:59 07:59 07:59
Intake Total 255 / 255 500 / 500
Output Total 865 / 865 185 / 185
Balance -610 / -610 315 / 315
Physical Exam
Physical Exam
GEN: No distress, awake, alert, oriented x3. sitting in chair. obese
HEENT: supple, anicteric, mmm, eomi
LUNGS: CTA B/L, no wheezes
CV: Reg, S1/S2, no murmur
ABD: soft, BS+, NT/ND
EXT: No cyanosis, clubbing, edema
NEURO: Gross non-focal
SKIN: Warm, pink, dry. No rash.
--- NOTE | 2025-02-05 13:00 | PTCARENOTE ---
Received pt from CVICU. AOx3. VSS. V paced on monitor. L CW surgical site noted, bhavik w/ surgiglue. L later chest w/ old CT site dressing intact c/d/i. PT offers no complaints at this time.
--- NOTE | 2025-02-05 13:32 | W.PN.ANS.POP ---
Anesthesia Post Operative
- Anesthesia Post Op Note
Vital Signs Stable-See Nursing Note: Yes
Airway Patent: Yes
Adequate Pain Control: Yes
Change in Mental Status: No
Current Postoperative Nausea & Vomiting: No
Anesthesia Complications: No
General Anesthetic Recall: No
Unplanned Admission: No
Post Op Hydration Adequate: Yes
--- NOTE | 2025-02-05 16:22 | PTCARENOTE ---
Pt's BP low sitting in the chair 77/59, confirmed w/ both arms, stated he felt lightheaded but this was not new. Back to bed for 10 minutes, BP now 89/61. HR V-paced 80's. CT MALIK mica washer gluer notified. Instructed to give scheduled Amio. Will continue to
monitor.
[2025-02-05] MEDS: COUMADIN 7.5 MG PO (17:40)
[2025-02-05] MEDS: LIPITOR 10 MG PO (20:10)
[2025-02-06] VITALS (8 sets, daily range): BP systolic 99–114; BP diastolic 76–86; BMI 39.2
[2025-02-06] MEDS: ROXICODONE 2.5 MG PO (01:30)
[2025-02-06 05:08] LABS: Hematocrit 32.1 % (39.0-52.0); Hemoglobin 10.7 g/dL (13.0-18.0); Mean Corp Hgb Conc. 33.3 g/dL (33.0-37.0); Mean Corpuscular Hgb 30.9 pg (27.0-31.0); Mean Corpuscular Volume 92.8 fL (80.0-94.0); Mean Platelet Volume 9.6 fL (7.4-10.4); Platelet Count 166 10^3/uL (130-400); Red Blood Cell Count 3.46 10^6/uL (4.70-6.10); Red Cell Dist. Width 13.3 % (11.5-14.5); White Blood Cell Count 9.2 10^3/uL (4.8-10.8)
[2025-02-06 05:14] LABS: INR 1.12
--- NOTE | 2025-02-06 05:17 | PTCARENOTE ---
Pt continues with some hypotension, however tolerated scheduled meds, asymptomatic resting in bed. Remains V-paced on CM. Able to ambulate to bathroom and back with assistx1 without complication. Tolerated CPAP HS.
[2025-02-06 05:33] LABS: Blood Urea Nitrogen 41 mg/dl (9-20); Calcium 8.9 mg/dl (8.4-10.2); Carbon Dioxide 29 mmol/L (22-30); Chloride 107 mmol/L (98-107); Estimated Creatinine Clearance 75 ml/min; Glucose 118 mg/dl (70-99); Magnesium 2.4 mg/dl (1.6-2.3); Potassium 4.4 mmol/L (3.5-5.1); Sodium 138 mmol/L (135-145); eGFR > 60.00
[2025-02-06] MEDS: TYLENOL 1000 MG PO ×2 (06:05→14:01)
[2025-02-06] MEDS: LIDOCAINE 4% PATCH 1 PATCH TOPICAL (08:43)
[2025-02-06] MEDS: PROTONIX 40 MG PO (08:44)
[2025-02-06] MEDS: ENTRESTO 24 MG/26 MG 1 TAB PO (08:44)
[2025-02-06] MEDS: BACTROBAN 2% OINTMENT 1 APPLIC NASAL (08:44)
[2025-02-06] MEDS: NEURONTIN 100 MG PO (08:48)
[2025-02-06] MEDS: MAGNESIUM OXIDE 500 MG PO (08:48)
[2025-02-06] MEDS: PACERONE 200 MG PO (08:49)
[2025-02-06] MEDS: SENOKOT-S 1 TABLET PO (08:50)
[2025-02-06] MEDS: MILK OF MAGNESIA 30 ML PO (08:50)
[2025-02-06] MEDS: LOW STRENGTH ASPIRIN 81 MG PO (08:51)
[2025-02-06] MEDS: LASIX 60 MG PO (08:51)
[2025-02-06] MEDS: TOPROL XL 50 MG PO (08:52)
[2025-02-06] MEDS: VITAMIN D3 (cholecalciferol) 50 MCG PO (08:52)
--- NOTE | 2025-02-06 10:45 | W.DCSUMMARY ---
Discharge Summary
Discharge Data
Date of Admission: 02/03/25
Date of Discharge: 02/06/25
Total time spent discharging patient (in min): 45
-
Pending Results: No
Hospital Course
Primary care physician:
Dr. Gissell Matias
Outpatient boiler room helper:
Primary Reconciler: Dr. Ronny Hopkins
Primary EP: Dr. Roy
Inpatient consultants:
DCA, sewing room supervisor
Procedures:
1. Implant of 2 left ventricular epicardial leads and Upgrade device to FUR POINTER ICD
Primary Diagnosis:
1. Nonischemic cardiomyopathy with reduced EF despite goal-directed medical therapy
Secondary Diagnoses:
1. Nonischemic cardiomyopathy with LVEF of 25%
2. History of H fibrillation with PPM placement
3. Hyperlipidemia
4. Hypertension
5. Obstructive sleep apnea
6. History of TIA
7. GERD
8. Morbidly obese with a BMI of 38
HPI: 74-year-old male with a history of nonischemic cardiomyopathy status post DC ICD for primary prevention with history of TIA and A-fib. He was referred to me given that he has newly found venous stenosis as well as a drop in his left
ventricular ejection fraction to 25% despite goal-directed medical therapy. His EKG demonstrated left bundle branch block. The patient also requested to have a new device placed with epicardial leads as opposed to laser lead extraction attempt.
Hospital course:
Patient was admitted on 02/08 procedure was postponed until 02/04. Postoperatively he was returned to the CVICU for the remainder of his recovery. Patient was extubated and then did not and was then diuresed. Goodman was discontinued and patient was
were resumed on Coumadin. On 02/05 postoperative day 1, patient's creatinine portillo to 1.4 and Lasix was held. Patient remained hemodynamically stable and level of care with decreased to telemetry. On 02/06 patient remained hemodynamically stable and
her creatinine stabilizes. He was given 10 mg of Coumadin and was deemed stable for discharge home.
Home medication changes:
None
Discharge Plan
-
Patient Disposition: Home (Routine Discharge)
Discharge Diagnosis/Procedures: Implant of 2 left ventricular epicardial leads and Upgrade device to FUR POINTER ICD by Dr. Laurent
Condition: Good
Diet: 2 Gram Sodium
Activity: No strenuous activity
Driving Restrictions: No driving for 2 weeks
Bathing Restrictions: OK to Shower
Other Services: Cardiac Rehab
Specialty Instructions: Weigh Daily- Call MD for wt gain/loss 3 lbs overnight/5 lbs in 1 week
Referrals:
Ronny Hopkins MD [Active] - 04/02/25 2:40 pm
Gissell Matias DO [Family Provider] - in four to six weeks (Please make an appointment in four to six weeks. )
Funmilayo Mcadams CRNP [Specified Professional Personl] - 02/18/25 1:00 pm
Additional Discharge Medication Instructions: You took 10mg of coumadin today, Please resume your coumadin tomorrow
Prescriptions:
New
acetaminophen 325 mg Tablet
650 mg PO Q4HPRN PRN (Reason: mild pain,headache,temp >101F ) Qty: 0 0RF
aspirin 81 mg Tablet,Chewable
81 mg PO DAILY Qty: 0 0RF
oxycodone 5 mg Tablet
2.5 mg PO Q4HPRN PRN (Reason: severe pain) Qty: 10 0RF
Continued
metoprolol succinate 50 MG tablet extended release 24 hr
50 mg PO DAILY
simvastatin 10 MG tablet
10 mg PO HS
warfarin 5 MG tablet
7.5 mg PO DAILY
loratadine 10 MG tablet
10 mg PO DAILYPRN PRN (Reason: seasonal allergy)
famotidine 40 mg Tablet
40 mg PO HS
furosemide 40 mg Tablet
60 mg PO DAILY
cholecalciferol (vitamin D3) 50 mcg (2,000 unit) Tablet
50 mcg PO DAILY
fluticasone propionate 50 mcg/actuation [place]cup[place],Suspension
1 spray INTRANASAL DAILYPRN PRN (Reason: allergies)
Entresto 24-26 mg tablet
1 tab PO BID
Held
Mounjaro 10 mg/0.5 mL Pen Injector
10 mg SC QWEEK
Hold Instructions: Resume on 02/20/25.
Discharge Orders:
Discharge Patient (As Directed); Ordered 02/06/25
Ordered By: Nazanin Calloway
Care Plan Goals
Care Plan Goals:
Problem: Readiness for enhanced knowledge related to diagnosis and treatment plan
Goal: Understand your diagnosis and treatment plan needs, including medications if applicable.
Instructions: Know your diagnosis, underlying causes and treatment plan options, including medications if applicable. Consult with your health care team to learn about your diagnosis and treatment plan, including medications if applicable.
Discharge Date and Time
Print Language: RWANDAN
[2025-02-06] MEDS: NSS IV (11:20)
--- NOTE | 2025-02-06 12:26 | PTCARENOTE ---
Patient OOB to chair. Ambulating independently. V-paced on monitor. Vital signs stable. Patient denies any pain or discomfort. Patient will be discharged to home today.
[2025-02-06] MEDS: COUMADIN 10 MG PO (13:17)
--- NOTE | 2025-02-06 15:03 | CM ---
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 Room air. V-paced. Per nurse; OOB to chair, ambulating independently.
Met with patient and ; the patient states he feels ready for d/c home today. IMM completed.
Patient stated he intended for himself and his to be transported home today by [employer] [facility] arranged transport van. Patient stated he has a benefit for 12 free rides per year. Patient had the phone # and called himself to arrange pickup
at 3:30pm. Nurse and Pain Management Nurse Practitioner aware.
Plan home today with by [employer] transport van.
== END 2025-02-06 15:43 | disposition home or self-care (01) | DRG 277 ==
LOC: IMU 07:34
PROVIDERS: Anesthesiology; Clinical Nurse Specialist Acute Care; ADMITTING PHYSICIAN Thoracic Surgery (Cardiothoracic Vascular Surgery); FAMILY PHYSICIAN Family Medicine
PROC: 4B02XTZ Measurement of Cardiac Defibrillator, External Approach (ICD-10-PCS; 2025-02-04)
PROC: 0JPT0PZ Removal of Cardiac Rhythm Related Device from Trunk Subcutaneous Tissue and Fascia, Open Approach (ICD-10-PCS; 2025-02-04)
PROC: 0JH609Z Insertion of Cardiac Resynchronization Defibrillator Pulse Generator into Chest Subcutaneous Tissue and Fascia, Open Approach (ICD-10-PCS; 2025-02-04)
PROC: 5A09357 Assistance with Respiratory Ventilation, Less than 24 Consecutive Hours, Continuous Positive Airway Pressure (ICD-10-PCS; 2025-02-04)
PROC: 02HL0KZ Insertion of Defibrillator Lead into Left Ventricle, Open Approach (ICD-10-PCS; 2025-02-04)
PROC: 02PA0MZ Removal of Cardiac Lead from Heart, Open Approach (ICD-10-PCS; 2025-02-04)
PROC: 01583ZZ Destruction of Thoracic Nerve, Percutaneous Approach (ICD-10-PCS; 2025-02-04)
PROC: B24BZZ4 Ultrasonography of Heart with Aorta, Transesophageal (ICD-10-PCS; 2025-02-04)
DX: I42.8 Other cardiomyopathies (principal); I87.1 Compression of vein; D62 Acute posthemorrhagic anemia; I50.22 Chronic systolic (congestive) heart failure; I48.21 Permanent atrial fibrillation; E78.5 Hyperlipidemia, unspecified; G47.33 Obstructive sleep apnea (adult) (pediatric); K21.9 Gastro-esophageal reflux disease without esophagitis; E66.812 Obesity, class 2; I11.0 Hypertensive heart disease with heart failure; E66.01 Morbid (severe) obesity due to excess calories; I70.8 Atherosclerosis of other arteries; I44.7 Left bundle-branch block, unspecified; Z68.38 Body mass index [BMI] 38.0-38.9, adult; Z86.73 Personal history of transient ischemic attack (TIA), and cerebral infarction without residual deficits; Z79.01 Long term (current) use of anticoagulants
CPT/HCPCS: 36415; 71045; 80048; 80053; 81003; 81015; 82248; 82330; 82565; 82805; 82947; 83036; 83735; 84132; 84302; 84520; 85014; 85018; 85025; 85027; 85049; 85610; 85730; 86850; 86900; 86901; 86920; 87070; 93005; 93312; 93320; 93325; 93880; 94002; 94660; C1882